=== PATIENT | female | born 1955 | race Caucasian/White ===

== ENCOUNTER → 2023-09-05 14:58 | Outpatient (REF) | payer OTHER, SELFPAY | LOC: WDC 14:58 | PROVIDERS: ATTENDING PHYSICIAN Nurse Practitioner Adult Health | DX: Z12.31 Encounter for screening mammogram for malignant neoplasm of breast (principal) | CPT/HCPCS: 77063; 77067 ==

== ENCOUNTER → 2025-04-15 11:21 | Outpatient (REF) | payer OTHER, SELFPAY | LOC: RCS 11:21 | DX: Z85.3 Personal history of malignant neoplasm of breast (principal) | CPT/HCPCS: 93005 ==